=== PATIENT | male | born 1965 | race Caucasian/White ===

== ENCOUNTER 2017-04-22 11:14 | Day surgery (SDC) | payer OTHER ==
[2017-04-22] MEDS ORDERED: LR 1,000 ML IV ONE (11:41)
--- NOTE | 2017-04-22 11:51 | PDHPUP ---
History & Physical Update H&P update statement: This history and physical update is based on an assessment of the patient which was completed after admission or registration (within 24 hours), but prior to the surgery/procedure.
[2017-04-22] MEDS ORDERED: ceFAZolin 2 GM/SWFI 2 GM/20 ML SYR IVP ONE (11:52)
[2017-04-22] MEDS ORDERED: BUPIVACAINE 0.5% 30 ML SDV ONE (12:08)
[2017-04-22] MEDS ORDERED: ROPIVACAINE HCL 150 MG/30 ML INJ ONE (12:08)
[2017-04-22] MEDS ORDERED: LIDOCAINE 1% 300 MG/30 ML SDV ONE (12:08)
[2017-04-22] MEDS ORDERED: DEXAMETHASONE 4 MG/ML VIAL ONE (12:08)
[2017-04-22] MEDS ORDERED: BACITRACIN 50,000 UNITS/10 ML SYR IRR ONE (12:09)
[2017-04-22] MEDS ORDERED: CYANO/VITAMIN B12 1000 MCG/ML VIAL ONE (12:09)
[2017-04-22] MEDS ORDERED: MIDAZOLAM 2 MG/2 ML VIAL IVP ONE (12:09)
--- NOTE | 2017-04-22 12:09 | PDANEPAE ---
ANE History of Present Illness rright foot neuroma ANE Past Medical History - Cardiovascular History Hx Hypertension: No Hx Arrhythmias: No Hx Chest Pain: No Hx Coronary Artery / Peripheral Vascular Disease: No Hx CHF / Valvular Disease: No Hx Palpitations: No - Pulmonary History Hx COPD: No Hx Asthma/Reactive Airway Disease: No Hx Recent Upper Respiratory Infection: No Hx Oxygen in Use at Home: No Hx Sleep Apnea: No Sleep Apnea Screening Result - Last Documented: Negative - Neurologic History Hx Cerebrovascular Accident: No Hx Seizures: No Hx Dementia: No - Endocrine History Hx Diabetes: No - Renal History Hx Renal Disorders: No - Neurological & Psychiatric Hx Hx Neurological and Psychiatric Disorders: Yes Neurological / Psychiatric History Comment: anxiety, depression - Cancer History Hx Cancer: No - Congenital Disorder History Hx Congenital Disorders: No - GI History Hx Gastrointestinal Disorders: No - Other Health History Other Health History: none - Chronic Pain History Chronic Pain: No - Surgical History Prior Surgeries: none ANE Review of Systems Review of systems is: negative Review of Systems: - Exercise capacity Exercise capacity: >=4 METS METS (RN): 5 METS ANE Patient History - Allergies Allergies/Adverse Reactions: No Known Allergies Allergy (Unverified 02/06/15 15:04) - Home Medications Home Medications: Fluoxetine 02/06/15 [Last Taken Unknown] - NPO status NPO Status: no food or drink >8 hours NPO Since - Liquids (Date): 04/22/17 NPO Since - Liquids (Time): 08:00 NPO Since - Solids (Date): 04/20/17 - Anes Hx Anes Hx: no prior problems - Smoking Hx Smoking Status: Never smoked - Alcohol Use Alcohol Use: Rarely - Family Anes Hx Family Hx Anesthesia Complications: none ANE Labs/Vital Signs - Vital Signs Blood Pressure: 108/70 Heart Rate: 52 Respiratory Rate: 16 O2 Sat (%): 95 Height: 175.26 cm Weight: 72.575 kg ANE Physical Exam - Airway Mallampati Score: Class 2 Mouth exam: normal dental/mouth exam - Pulmonary Pulmonary: no respiratory distress - Cardiovascular Cardiovascular: regular rate and rhythym - ASA Status ASA Status: I ANE Anesthesia Plan Anesthesia Plan: MAC
[2017-04-22] MEDS ORDERED: LIDOCAINE 2% 5 ML SDV ONE (12:26)
[2017-04-22] MEDS ORDERED: PROPOFOL/EMULSION 500 MG/50 ML BOTTLE IV ONE (12:26)
[2017-04-22] MEDS ORDERED: fentaNYL 100 MCG/2 ML INJ ONE (12:26)
[2017-04-22] MEDS ORDERED: KETOROLAC 30 MG/1 ML SDV ONE (13:19)
--- NOTE | 2017-04-22 13:50 | POSTOPPROG ---
Post Op Note Date of Operation: 04/22/17 Surgeon: Kailey Solorio Mental Hygiene Consultant: NONE Anesthesiologist: DR.Andrew Jonathan MD Anesthesia: Other (Specify) (MAC/light general) Pre-op Diagnosis: neuroma 3rd IMS right foot Post-op Diagnosis: same Indication: pain Procedure: excision neuroma 3rd IMS right foot Findings: very enlarged nerve Inf/Abcess present in the surg proc area at time of surgery?: No Depth: Deep Incisional (Fascial) EBL: Minimal Complications: none Drains: Other (silastic)
[2017-04-22] MEDS ORDERED: PROMETHAZINE HCL 25 MG/ML INJ IVP PRN (13:52)
[2017-04-22] MEDS ORDERED: NALOXONE HCL 0.4 MG/ML INJ IVP PRN (13:52)
[2017-04-22] MEDS ORDERED: HYDROCODONE/APAP 5/325 TAB PO PRN (13:52)
[2017-04-22] MEDS ORDERED: fentaNYL 100 MCG/2 ML INJ IVP PRN (13:52)
[2017-04-22] MEDS ORDERED: ALBUTEROL 3 ML DEYVIAL IH PRN (13:52)
[2017-04-22] MEDS ORDERED: ONDANSETRON 4 MG/2 ML VIAL IVP PRN (13:52)
[2017-04-22] MEDS ORDERED: OXYCODONE/APAP 5/325 TAB PO PRN (13:52)
--- NOTE | 2017-04-22 13:52 | POSTANESTH ---
Post Anesthetic Evaluation Cardiovascular Status: Normal, Stable Respiratory Status: Normal, Stable Level of Consciousness/Mental Status: Can Participate in Eval Pain Control: Adequate, Prn Tx Ordered Nausea/Vomiting Control: Adequate, Prn Tx Ordered Complications Possibly Related to Anesthesia: None Noted
[2017-04-22 14:18] VITALS: TEMP 97.5
[2017-04-22 14:53] VITALS: BP 100/63; PULSE 47; RESP 14; O2SAT 99
--- NOTE | 2017-04-23 03:54 | GOP ---
[f rep st] OPERATIVE REPORT DATE OF OPERATION: 04/22/2017 SURGEON: Kailey Solorio DPM ANESTHESIA: MAC/light general. 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 PROCEDURE PERFORMED: Excision of neuroma at 3rd intermetatarsal space, right foot. FINDINGS: Soft tissue mass, quite large, consistent with that of a neuroma. INDICATIONS: Pain of right foot consistent with that of a neuroma. Temporary relief was provided with local cortisone injections. Other conservative treatment options discussed at past visits, as well as shoe education. The patient has had symptoms for years, which have been progressively getting worse. 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 At this time, Dwight has elected to proceed with surgery. DESCRIPTION OF PROCEDURE: The patient was brought into the operating room, placed on the operating table in the supine position, and intravenous sedation was administered by the anesthesiologist. A posterior tibial and peripheral nerve block was obtained utilizing a total of 15 mL of a 1:1 mix of 0.5% Marcaine plain, 1% lidocaine plain, and 0.5% ropivacaine plain. The lower extremity was prepped and draped in the usual sterile manner. After the limb had been elevated, it was exsanguinated with an Esmarch bandage, and the ankle tourniquet was inflated to 220 mmHg and the procedure was begun. Webril padding was applied under the ankle cuff. Attention was directed toward the dorsal aspect of the 3rd intermetatarsal space where a linear incision was created. The incision was carefully deepened with care of neurovascular structures and then I clamped and cauterized bleeders. With plantar pressure to web space, a large rubbery soft tissue consistent with that of a neuroma was identified. With careful dissection, the distal branches to the 3rd and 4th digit were identified and released. Soft tissue mass was released from surrounding scar tissue. The tight intermetatarsal ligament was released to allow for exposure of the proximal nerve branch. Once fully released, the soft tissue mass was distracted distally and then transected at a level proximal to the lesser metatarsal heads at the level of the intrinsic muscles. The specimen was removed from the wound in toto and sent to pathology for gross and microscopic examination. The wound was inspected and no other pathologic tissue was noted to be present. The wound was copiously irrigated with bacitracin irrigation solution. Note prior to transection of the proximal branch, a mixture of 2 mL of ropivacaine and Marcaine combined with 1 mL of B12, or cyanocobalamin, and 1 mL of Decadron were injected. The tourniquet was released and a normal hyperemic response was noted to all digits. Surgicel was used to help control bleeding. A separate stab incision was created for exiting of a silastic drain. Once bleeding controlled, subcutaneous closure was achieved with 4-0 Monocryl. The skin was then closed with 4-0 Prolene and horizontal mattress in a simple interrupted suture manner. Dressings included Xeroform, 4 x 4s, fluffs, and Nilesh reinforced with tape and an Alex bandage. The patient tolerated the procedure and anesthesia well and left the operating room with vital signs stable and vascular status intact to all digits. There were no intraoperative complications. The specimen was sent to pathology for gross and microscopic examination. There were no additional injectables. The patient was without pain in the recovery room. He was fitted with a Cryo Cuff. His will be providing transportation home. Prognosis is good. /[id number]/MODL MTDD
== END 2017-04-22 15:25 | disposition home or self-care (01) ==
LOC: FSGY 11:14
PROVIDERS: ATTEND Podiatrist
PROC: 01BG0ZZ Excision of Tibial Nerve, Open Approach (ICD-10-PCS; principal; 2017-04-22 12:30)
DX: G57.81 Other specified mononeuropathies of right lower limb (principal); F41.9 Anxiety disorder, unspecified; F32.9 Major depressive disorder, single episode, unspecified
CPT/HCPCS: J0690; J1100; J1885; J2250; J2704; J2795; J3010

== ENCOUNTER 2017-04-23 12:57 | Observation (INO) | payer OTHER ==
[2017-04-23] MEDS ORDERED: NS 1,000 ML IV ONE ×2 (13:24→15:37)
--- NOTE | 2017-04-23 13:28 | EDPHY ---
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 He had a neuroma excision of his right foot yesterday with Dr. Kailey Solorio. He took 1 dose of oxycodone last evening. He was doing well this morning and having minimal pain. Suddenly at 11 o'clock he could not speak. He was talking to his and got stuck on the word transparent and was saying "trans ball bowl". He then could not speak at all. He was writing things down for his . His states that the writing was sap bw consultant. After about 5 minutes his symptoms began to resolve and he could start to read things very slowly. He did not have any slurred speech with this but was very slow. Both patient and deny any facial droop or focal weakness or numbness. His had him walk around and move his arms and legs which he did without difficulty. No headache. No recent trauma. No infection. He does have a history of anxiety but has not required his anxiety medication recently. REVIEW OF SYSTEMS: Constitutional: denies: chills, fever, recent illness, recent injury EENTM: denies: blurred vision, double vision, nose congestion Respiratory: denies: cough, shortness of breath Cardiac: denies: chest pain, irregular heart rate, lightheadedness, palpitations Gastrointestinal/Abdominal: denies: abdominal pain, diarrhea, nausea, vomiting, blood streaked stools Genitourinary: denies: dysuria, frequency, hematuria, pain Musculoskeletal: denies: joint pain, muscle pain Skin: denies: lesions, rash, jaundice, bruising Neurological: See HPI Hematologic/Lymphatic: denies: blood clots, easy bleeding, easy bruising Immunologic/allergic: denies: HIV/AIDS, transplant EXAM: GENERAL: Well-appearing, well-nourished and in no acute distress. HEAD: Atraumatic, normocephalic. EYES: Pupils equal round and reactive to light, extraocular movements intact, sclera anicteric, conjunctiva are normal. ENT: TMs normal, nares patent, oropharynx clear without exudates. Moist mucous membranes. NECK: Normal range of motion, supple without lymphadenopathy or JVD. LUNGS: Breath sounds clear to auscultation bilaterally and equal. No wheezes rales or rhonchi. HEART: Regular rate and rhythm without murmurs, rubs or gallops. ABDOMEN: Soft, nontender, normoactive bowel sounds. No guarding, no rebound. No masses appreciated. BACK: No CVA tenderness, no spinal tenderness, step-offs or deformities EXTREMITIES: Normal range of motion, no pitting or edema. No clubbing or cyanosis. NEUROLOGICAL: NIH stroke scale 0, Cranial nerves II through XII grossly intact. Normal speech, normal gait. 5/5 strength, normal movement in all extremities, normal sensation PSYCH: Normal mood, normal affect. SKIN: Warm, dry, normal turgor, no visible rashes or lesions. Source: Patient, Family - Personal History Current Tetanus/Diphtheria Vaccine: Unsure Current Tetanus Diphtheria and Acellular Pertussis (TDAP): Unsure - Medical/Surgical History Hx Asthma: No Hx Chronic Respiratory Disease: No Hx Diabetes: No Hx Cardiac Disease: No Hx Renal Disease: No Hx Cirrhosis: No Hx Alcoholism: No Hx HIV/AIDS: No Hx Splenectomy or Spleen Trauma: No Other PMH: R foot surgery - Family History Significant Family History: No pertinent family hx - Social History Smoking Status: Never smoked Alcohol Use: Sober Drug Use: None Constitutional: Initial Vital Signs Temperature (C) 37.0 C 04/23/17 13:00 Heart Rate 67 04/23/17 13:00 Respiratory Rate 16 04/23/17 13:00 Blood Pressure 101/70 04/23/17 13:00 O2 Sat (%) 96 04/23/17 13:00 O2 Delivery Mode Room Air Allergies/Adverse Reactions: No Known Allergies Allergy (Unverified 02/06/15 15:04) Home Medications: Medication Instructions Recorded Acetaminophen [Tylenol 325mg (*)] 325 mg PO DAILY PRN 04/23/17 Gabapentin [Neurontin 300 MG (*)] 300 mg PO HS 04/23/17 Mirtazapine [Remeron] 15 mg PO HS 04/23/17 oxyCODONE/APAP 5/325 [Percocet 1 tab PO Q4-6PRN PRN 04/23/17 5/325 (*)] Medical Decision Making - Diagnostics EKG Interpretation: An EKG obtained and was read and documented in trace view. Please see trace view for full reading and report. Sinus rhythm, no acute ischemic changes Imaging: Discussed imaging studies w/ street sprinkler Radiologist ED Course/Re-evaluation: Patient's imaging and lab work and ultrasound are very reassuring. He remains completely asymptomatic. I have paged Neurology to discuss. Anticipate that will start him on aspirin and allow him to go home. I attempted to call Dr. Solorio back at the cell phone number she provided however it states that the message box is full. 3:05 p.m. I discussed the case with Dr. Richey from Neurology. He recommends admission for further testing and telemetry monitoring. I discussed the case with Dr. Abena Francois who will admit. Differential Diagnosis: Partial list of the Differential diagnosis considered include but were not limited to; TIA, CVA and although unlikely based on the history and physical exam, I also considered vascular disease, arrhythmia, DVT. - Data Points Laboratory Results: Laboratory Results 04/23/17 13:14 04/23/17 13:14 Medications Given: Gabapentin (Neurontin) 300 mg PO HS NELSON Stop: 10/20/17 20:59 Last Admin: 04/23/17 21:23 Dose: 300 mg Oxycodone/Acetaminophen (Percocet 5/325) 1 tab PO Q4 PRN PRN Reason: Pain, Breakthrough Stop: 05/03/17 15:42 Last Admin: 04/23/17 17:54 Dose: 1 tab Senna/Docusate Sodium (Senokot-S) 1 - 2 tab PO BID NELSON PRN Reason: Protocol Stop: 10/20/17 21:14 Last Admin: 04/23/17 21:23 Dose: 2 tab Discontinued Medications Sodium Chloride (Ns) 1,000 mls @ 0 mls/hr IV ONCE ONE; Wide Open PRN Reason: Protocol Stop: 04/23/17 13:25 Last Admin: 04/23/17 13:30 Dose: 1,000 mls Sodium Chloride (Ns) 1,000 mls @ 3,000 mls/hr IV ONCE ONE Stop: 04/23/17 15:56 Last Admin: 04/23/17 18:19 Dose: Not Given Departure - Departure Disposition: [facility] Acute Clinical Impression: TIA (transient ischemic attack) Qualifiers: Transient cerebral ischemia type: unspecified Qualified Code(s): G45.9 - Transient cerebral ischemic attack, unspecified Condition: Fair
--- NOTE | 2017-04-23 13:34 | CPEKG ---
Heart Rate: 69 RR Interval: 870 P-R Interval: 172 QRSD Interval: 80 QT Interval: 396 QTC Interval: 425 P Quinwood: 23 QRS Quinwood: 60 T Wave Quinwood: 30 EKG Severity - NORMAL ECG - EKG Impression: SINUS RHYTHM Electronically Signed By: Blair Monique 23-Apr-2017 13:57:32
[2017-04-23 13:35] LABS: % IMMATURE GRANULYOCYTES 0.2 % (0.0-1.1); ABSOLUTE IMMATURE GRANULOCYTES 0.01 10^3/uL (0.00-0.10); ADD DIFF? NO; ADD MORPH? NO; ADD SCAN? NO; ATYPICAL LYMPHOCYTE FLAG 0 (0-99); FRAGMENT RBC FLAG 0 (0-99); HEMATOCRIT 44.5 % (40.0-51.0); HEMOGLOBIN 15.4 g/dL (13.7-17.5); LEFT SHIFT FLG 0 (0-99); LIPEMIA HEMOLYSIS FLAG 90 (0-99); MEAN CELL HEMOGLOBIN 30.2 pg (27.9-34.1); MEAN CELL HEMOGLOBIN CONCENTR. 34.6 g/dL (32.4-36.7); MEAN CELL VOLUME 87.3 fL (81.5-99.8); MEAN PLATELET VOLUME 8.6 fL (8.7-11.7); PLATELET CLUMPS FLAG 0 (0-99); PLATELET COUNT 210 10^3/uL (150-400); RED CELL DISTRIBUTION WIDTH 12.4 % (11.5-15.2)
[2017-04-23 13:44] LABS: ANION GAP 13 mEq/L (8-16); CALCIUM 8.3 mg/dL (8.5-10.4); CARBON DIOXIDE 23 mEq/l (22-31); CHLORIDE 104 mEq/L (97-110); CREATININE 0.9 mg/dL (0.7-1.3); GLOMERULAR FILTRATION RATE > 60; GLUCOSE 92 mg/dL (70-100); POTASSIUM 4.3 mEq/L (3.5-5.2); SODIUM 140 mEq/L (134-144)
[2017-04-23 13:45] LABS: INR 1.08 (0.83-1.16); PROTIME(PATIENT) 13.9 SEC (12.0-15.0)
[2017-04-23] MEDS ORDERED: ACETAMINOPHEN 325 MG TAB PO PRN (15:37)
[2017-04-23] MEDS ORDERED: ONDANSETRON DISINTEGRATING 4 MG TAB PO PRN (15:37)
[2017-04-23] MEDS ORDERED: ONDANSETRON 4 MG/2 ML VIAL IVP PRN (15:37)
[2017-04-23] MEDS ORDERED: OXYCODONE/APAP 5/325 TAB PO PRN (15:43)
[2017-04-23] MEDS ORDERED: ASPIRIN 81 MG CHEWABLE TAB PO SCH (16:36)
--- NOTE | 2017-04-23 17:23 | GHP ---
[f rep st] HISTORY AND PHYSICAL DATE OF ADMISSION: 04/23/2017 CHIEF COMPLAINT: Inability to speak. 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 and was attemp ting to say the word transparent to his and was unable to appropriately make the word. That abundio bility to find words and make words then progressed to a complete inability to speak which lasted for approximately 5 minutes. He had to switch to writing to his to communicate what he was experie ncing. The overall episode the described as lasting approximately 20 minutes until he had resol ution and resumed ability to make words and verbally communicate. The patient denies any preceding e pisodes similar to this. Denies any associated numbness, tingling, weakness. The patient had an unc omplicated postoperative course, ate normally after surgery. Had a bowel movement after surgery, ema t to sleep without complication. Woke. Has only used 1 pain pill since then prior to the episode of dysarthria. The patient in the emergency department denies any chest pain, shortness of breath, num bness, tingling, arthralgias, myalgias. Denies any recent subjective fevers or chills, difficulty sw allowing, changes in his vision. PAST MEDICAL HISTORY: Recent neuroma removal from his right foot. SOCIAL HISTORY: Negative for tobacco. Drinks maybe a beer a month. No illicit drugs or marijuana. FAMILY HISTORY: Notes his father was on warfarin for something, but not sure what. He is 88, and qu ite healthy, accomplished athlete as well. ADVANCED DIRECTIVE: Patient is full cor, full tube. REVIEW OF SYSTEMS: A 10-point review of systems is negative with the exception of that reported in t he HPI. PHYSICAL EXAMINATION: VITAL SIGNS: Blood pressure 112/70, heart rate 60, respiratory rate 16, 96% o n room air, temperature 37.0. GENERAL: This is a very healthy-appearing male in no acute distress. HEENT: Notable for moist mucous membranes. Eye exam is negative for any icterus. CARDIAC: Patient is regular rate and rhythm. No murmurs, gallops, or rubs. PULMONARY: Patient is clear to ausculta tion bilaterally. GASTROINTESTINAL: Positive bowel sounds. ABDOMEN: Soft and nontender in all 4 q uadrants. MUSCULOSKELETAL: Negative for any lower extremity edema. His surgical foot is wrapped wi th serosanguineous drainage. NEUROLOGIC: Patient is alert and oriented x3. Cranial nerves 2-12 are grossly intact. Sensation is intact throughout. Strength is 5/5 of bilateral upper and lower extre mities. Gait was not examined. DATA: MRI of the brain, which I personally reviewed and interpreted, shows no acute infarcts or flores ges. EKG, which I personally reviewed and interpreted, shows sinus rhythm, normal axis, normal inter vals, with no acute ST-T changes. LABORATORY: White count 6.5, platelet count of 210. Sodium 140, creatinine 0.9, potassium 4.3. ASSESSMENT AND PLAN: This is a 52-year-old male presenting with transient inability to speak, dysart hria. 1. Suspected transient ischemic attack. Patient had transient neurologic symptoms which have resolve d by the time he presented to the emergency department. Initial neurologic imaging is negative. Jose Angel l admit the patient for neurologic evaluation and observation telemetry. Transthoracic echocardiogram and carotid ultrasound have been ordered. Hemoglobin A1c and lipids have been ordered for a.m. labs . The patient will be seen by Neurology. 2. Recent neuroma removal. Patient has had no complications post surgically. Will continue his as needed pain medications. 3. Prophylaxis with Lovenox. 4. Diet regular after Speech Therapy clears. DISPOSITION: I expect in less than 2 midnights as the patient's neurologic monitoring is negative, s een by Neurology and is safe for disposition. I have discussed the case with the emergency room phys nina. Patient will be triaged to [address] [place] [address] for neurologic monitoring. /[id number]/MODL
[2017-04-23] MEDS ORDERED: GABAPENTIN 300 MG CAP PO SCH (21:00)
[2017-04-23] MEDS ORDERED: NON-FORMULARY NEW DRUG (Mirtazapine [Remeron] 15 MG) PO SCH (21:00)
[2017-04-23] MEDS ORDERED: POLYETHYLENE GLYCOL 3350 17 GM PKT PO PRN (21:11)
[2017-04-23] MEDS ORDERED: MAGNESIUM HYDROXIDE 30 ML UDCUP PO PRN (21:11)
[2017-04-23] MEDS ORDERED: BISACODYL 10 MG SUPP PR PRN (21:11)
[2017-04-23] MEDS ORDERED: LACTULOSE 20 GM/30 ML UDCUP PO PRN (21:11)
[2017-04-23] MEDS: SENNOSIDES/DOCUSATE SODIUM TAB PO SCH (21:23)
[2017-04-24 04:50] LABS: % IMMATURE GRANULYOCYTES 0.2 % (0.0-1.1); ABSOLUTE IMMATURE GRANULOCYTES 0.01 10^3/uL (0.00-0.10); ADD DIFF? NO; ADD MORPH? NO; ADD SCAN? NO; ATYPICAL LYMPHOCYTE FLAG 0 (0-99); FRAGMENT RBC FLAG 0 (0-99); HEMATOCRIT 43.5 % (40.0-51.0); HEMOGLOBIN 14.8 g/dL (13.7-17.5); LEFT SHIFT FLG 0 (0-99); LIPEMIA HEMOLYSIS FLAG 90 (0-99); MEAN CELL HEMOGLOBIN 30.2 pg (27.9-34.1); MEAN CELL VOLUME 88.8 fL (81.5-99.8); MEAN PLATELET VOLUME 8.6 fL (8.7-11.7); PLATELET CLUMPS FLAG 0 (0-99); PLATELET COUNT 170 10^3/uL (150-400); RED CELL DISTRIBUTION WIDTH 12.2 % (11.5-15.2)
[2017-04-24 05:30] LABS: ANION GAP 10 mEq/L (8-16); CALCIUM 8.1 mg/dL (8.5-10.4); CARBON DIOXIDE 25 mEq/l (22-31); CHLORIDE 105 mEq/L (97-110); CHOLESTEROL 138 mg/dL (140-220); CHOLESTEROL/HDL RATIO 3.37 RATIO (1.00-4.97); CREATININE 0.9 mg/dL (0.7-1.3); GLOMERULAR FILTRATION RATE > 60; GLUCOSE 79 mg/dL (70-100); HIGH DENSITY LIPOPROTEIN 41 mg/dL (40-65); LDL/HDL RATIO 1.85 RATIO (1.00-3.64); LOW DENSITY LIPOPROTEIN 76 mg/dL (80-100); NON-HIGH DENSITY LIPOPROTEIN 97 mg/dL (90-129); POTASSIUM 4.3 mEq/L (3.5-5.2); SODIUM 140 mEq/L (134-144); TRIGLYCERIDE 108 mg/dL (40-150); VERY LOW DENSITY LIPOPROTEINS 21 mg/dL (8-25)
[2017-04-24 07:49] VITALS: TEMP 97.5
[2017-04-24] MEDS: SENNOSIDES/DOCUSATE SODIUM TAB PO SCH (08:58)
[2017-04-24] MEDS ORDERED: ASPIRIN 81 MG CHEWABLE TAB PO SCH (09:00)
[2017-04-24] MEDS ORDERED: ENOXAPARIN 40 MG/0.4 ML SYR SC SCH (09:00)
[2017-04-24 09:05] LABS: HEMOGLOBIN A1C 5.4 % (4.0-6.0)
--- NOTE | 2017-04-24 09:57 | ASMTCMCOM ---
CM Note CM Note Notes: Chart reviewed. Spoke to RN all signs lorraine TIA resolved. For CT angio and echo. Likely home with no needs. CM available should needs arise. Date Signed: 04/24/2017 09:56 AM Electronically Signed By:Tati Hunter RN
[2017-04-24] MEDS ORDERED: IOPAMIDOL (ISOVUE 370) 100 ML BTL IV ONE (10:02)
--- NOTE | 2017-04-24 11:08 | NEUROPROG ---
Assessment: HOSPITAL NEUROLOGY CONSULT REQUESTING: Betzaida Trevino MD REASON: TIA HPI: 52 year old right-handed man presented to our facility yesterday, 04/23, for suspected TIA. 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 He has no known vascular risk factors. The day prior to admission he had a neuroma removed from his right foot. He received MAC anesthesia, but he's not sure what agents were used. The day of admission, he was at home and around 1100 he had an abrupt onset difficulty producing words. His noted he was producing nonsensical sounds - he was trying to say the word transparent out loud, which was in a sentence he was reading. Then, he notes trying to read something in front of him and he couldn't make sense of the words on the page. His verbal output then stopped completely. He was able to write. He comprehension seemed preserved. This spell lasted about 5 mins, at which point he regained all language function. He denies any vision loss, diplopia, dizziness, weakness, sensory loss, gait change, KHAN, fevers. He took a single dose of oxycodone the night before, but no medications the day of the event. No history of stroke/ TIA. ROS: As per the HPI, otherwise a complete 12 point ROS was performed and is negative ALLERGIES AND MEDS: As recorded in the EMR - reviewed and reconciled PFSH: As per the intake H&P by Dr. Trevino from yesterday EXAM: VS reviewed in EMR GEN: WDWN laying in NAD, boot on right foot from surgery HEENT: NCAT, sclera anicteric, conjunctiva not injected, MMM, oropharynx clear, no scalp tenderness NECK: supple, nontender, no meningismus CV: RRR s1 s2 wo m/r/c/g. Carotid pulses 2+ wo bruit NEURO: MS: awake, alert, oriented to all spheres. Speech nondysarthric. No language disturbance. Follows commands. Attends to both sides. Recent/remote memory grossly intact. Mood euthymic. Good fund of knowledge. CN: pupils 5mm round and reactive. Fundi with sharp discs. VFF. Primary gaze centered. Full ocular motility. Facial sensation preserved. Face symmetric. Hearing grossly intact to finger rub. Palatoglossal movements intact. Shoulder shrug and head turn strong. MOTOR: normal bulk/tone. No adventitial movements. Full power throughout. SENSORY: intact to all modalities throughout. No extinction. COORD: no ataxia FN/HS. Gunnar preserved. REFLEX: plantars down. No clonus. DTRS 2/4. GAIT: deferred to PT safety eval DATA REVIEW: Labs reviewed in EMR LDL 75 A1c 5.4 TTE pending PERSONALLY INTERPRETED RESULTS AND DATA: MRI brain wo - single area of T2 FLAIR hyperintensity in the left parietal white matter - nonspecific. Nothing acute. No other abnormalities. Carotid doppler - normal IMPRESSION AND RECOMMENDATIONS: // POSSIBLE TIA Patient with an episode of aphasia and alexia lasting 5 mins. Certainly could have been a TIA given symptomatology. Other considerations include lingering effect of anesthesia or anxiety phenomenon. - CTA head/neck - need to eval full course of left anterior circulation given language dysfunction, as well as posterior circulation given alexia without agraphia (though, no vision loss) - cont ASA 81mg daily - start low dose statin for pleiotropic effects - goal normotension - A1c at goal < 6.5 - TTE pending - PT/OT/CYBER SECURITY MANAGER consults - stroke education - will need outpatient evaluation with cardiology for paroxysmal arrhythmia evaluation (perhaps perioperative induced) - likely needs just 30 day Holter - followup with PCP after discharge Objective: Vital Signs Temp Pulse Resp BP Pulse Ox 36.4 C 56 L 16 107/63 94 04/24/17 07:48 04/24/17 07:48 04/24/17 07:48 04/24/17 07:48 04/24/17 07:48 Laboratory Results 04/24/17 04:39 04/24/17 04:39 04/23/17 04/24/17 04/25/17 05:59 05:59 05:59 Intake Total 550 Balance 550 PT 13.9 SEC (12.0-15.0) 04/23/17 13:14 INR 1.08 (0.83-1.16) 04/23/17 13:14 Allergies/Adverse Reactions: No Known Allergies Allergy (Unverified 02/06/15 15:04)
--- NOTE | 2017-04-24 12:51 | HOSPPROG ---
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 He recently had a neuroma moved from his right foot. Later that day he was having the inability to find words and had some difficulty speaking. This lasted approximately 5 minutes he was admitted for further evaluation. * suspected transient ischemic attack-MRI of the brain showed no acute infarct or changes -EKG shows sinus rhythm -echo is pending -A1c is 5.4 and LDL is 75 -will need outpatient cardiology further evaluation and recommendation is a 30 day Holter monitor -CT of the head and neck nothing acute -carotid Doppler does not indicate any stenosis -could of been r/t pain medication -reviewed plaster mixer, he is in sinus rhythm *recent neuroma removal *Hx of anxiety *Plan: if echo stable, will dc home. spoke with cardiology/ holter monitor will be sent in the next 72 hours or so. He will need f/u with them. Subjective: Dwight feels fine/ has no complaints. Objective: Vital Signs Temp Pulse Resp BP Pulse Ox 36.4 C 56 L 16 107/63 94 04/24/17 07:48 04/24/17 07:48 04/24/17 07:48 04/24/17 07:48 04/24/17 07:48 Laboratory Results 04/24/17 04:39 04/24/17 04:39 04/23/17 04/24/17 04/25/17 05:59 05:59 05:59 Intake Total 550 Balance 550 PT 13.9 SEC (12.0-15.0) 04/23/17 13:14 INR 1.08 (0.83-1.16) 04/23/17 13:14 - Physical Exam Constitutional: no apparent distress, appears nourished, not in pain Eyes: PERRL Ears, Nose, Mouth, Throat: hearing normal Cardiovascular: regular rate and rhythym Respiratory: no respiratory distress Gastrointestinal: normoactive bowel sounds Skin: warm Musculoskeletal: full muscle strength Neurologic: AAOx3, CN II-XII Intact, No facial droop Psychiatric: interacting appropriately, not anxious ICD10 Worksheet Patient Problems: Problems Problem Status Onset TIA (transient ischemic attack) Acute
--- NOTE | 2017-04-24 14:41 | ECHO ---
[email or web address] [address] [address] Main: [phone] Fax: Transthoracic Echocardiogram Name: LAMBERTO ORELLANA MR#: [id number] Study Date: 04/24/2017 Study Time: 01:38 PM Date of : 1965 Age: 52 year(s) Height: 182.9 cm (72 in.) Weight: 73.48 kg (162 lb.) BSA: 1.95 m2 Gender: Male Examination: Echo with Agitated Saline Indication: TIA source of emboli Image Quality: Adequate Contrast: I.V. dose of agitated saline Requested by: Betzaida Trevino BP: 107 mmHg/63 mmHg Heart Rate: Rhythm: Normal sinus rhythm Indication: TIA source of emboli Procedure Staff Blade Bender Furnace Tender: Maribeth Cutler Reading Physician: Michi Good Requesting Provider: Conclusions: Normal global systolic LV function. EF is 66 %. An agitated saline study was performed and was negative for intracardiac shunting. Trivial mitral valve regurgitation. Diffuse aortic cusp thickening is noted. Trivial aortic valve regurgitation. No gross evidence of vegetations. Trivial tricuspid valve regurgitation. Measurements: Chambers Valvular Assessment AV/MV Valvular Assessment TV/PV Normal Normal Normal Name Value Range Name Value Range Name Value Range Ao Antonette (MM): 3.4 cm (2.2 cm-3.7 AV Vmax: 1.11 m/s (1 m/s-1.7 PV Vmax: 0.87 m/s (0.6 m/s-0.9 cm) m/s) m/s) IVSd (2D): 0.9 cm (0.6 cm-1.1 AV maxP mmHg ( - ) PV PGmax: 3 mmHg ( - ) cm) LVOT Vmax: 0.87 m/s (0.7 m/s-1.1 LVDd (2D): 4.1 cm (4.2 cm-5.9 m/s) cm) MV E Vmax: 0.61 m/s ( - ) LVDs (2D): 2.5 cm (2.1 cm-4 MV A Vmax: 0.61 m/s ( - ) cm) MV E/A: 1.00 ( - ) LVPWd (2D): 0.9 cm (0.6 cm-1 cm) LVEF (BP): 66 % (>=55 %) RVDd(2D): 3.0 cm (1.9 cm-3.8 cmmm) Continued Measurements: Chambers Valvular Assessment AV/MV Patient: LAMBERTO ORELLANA Study Date: 04/24/2017 Page 1 of 2 01:38 PM Name Value Name Value LADs Lon.0 cm MV DecTime: 289 m/s LA Area: 12.9 cm2 MV E' Septal: 0.08 m/s MV E/E' Septal: 7.20 MV E/E' Lateral: 5.20 Findings: Left Ventricle: Normal size left ventricle. No LV hypertrophy. Normal global systolic LV function. EF is 66 %. No regional wall motion abnormality. Normal diastolic LV function. Right Ventricle: Normal size right ventricle. Left Atrium: The left atrium is normal in size. An agitated saline study was performed and was negative for intracardiac shunting. Right Atrium: The right atrium is normal in size. Mitral Valve: The mitral valve is normal in appearance and function. Trivial mitral valve regurgitation. Aortic Valve: Diffuse aortic cusp thickening is noted. Trivial aortic valve regurgitation. No gross evidence of vegetations. Tricuspid Valve: The tricuspid valve is normal in appearance and function. Trivial tricuspid valve regurgitation. Pulmonary artery pressure is not obtained due to inadequate TR jet. Pulmonic Valve: The pulmonic valve is normal in appearance and function. Aorta: The aorta is normal. Normal size aortic root measuring 3.4 cm. Pericardium: No pericardial effusion. (No Signature Object) Patient: LAMBERTO ORELLANA Study Date: 04/24/2017 Page 2 of 2 01:38 PM [id number]
[2017-04-24 15:29] VITALS: BP 101/55; PULSE 52; RESP 16; O2SAT 95
--- NOTE | 2017-04-24 15:54 | ASDISCHSUM ---
Discharge Information Plan Status:Home with No Needs Medically Cleared to Leave: Discharge Date:04/24/2017 03:50 PM CM D/C Disposition:Home, Routine, Self-Care ADT D/C Disposition:Home, Routine, Self-Care Projected Discharge Date:04/24/2017 03:50 PM Transportation at D/C: Discharge Delay Reason: Follow-Up Date:04/24/2017 03:50 PM Discharge Slot: Final Diagnosis: Placement Information Patient Contact Information Contact Name:ZECHARIAH Relationship: Address:[address] [place] [address] [place] City:[place] Alternate Phone: [facility]/Zip Code:[place] [address] Email: Financial Information Financial Class:HMO and PPO Plans Primary Plan Desc:TONYA PPO [employer] Primary Plan Number:[id number] Secondary Plan Desc: Secondary Plan Number: Assessment Information LACE LACE Acuity / Level of Care Answers: Was the patient admitted to hospital via the emergency department? Yes: Emergency dept visits in Answers: 1 last 6 months Score: 4 Date Signed: 04/23/2017 05:08 PM Electronically Signed By:Annia Bruce RN [facility] CM Progress Note CM Note CM Note Notes: Chart reviewed. Spoke to RN all signs lorraine TIA resolved. For CT angio and echo. Likely home with no needs. CM available should needs arise. Date Signed: 04/24/2017 09:56 AM Electronically Signed By:Tati Hunter RN Intervention Information
--- NOTE | 2017-04-25 08:46 | GDS ---
[f rep st] DISCHARGE SUMMARY DISCHARGE DIAGNOSIS: 1. Suspected transient ischemic attack. 2. Recent neuroma removal. 3. History of anxiety. CONSULTATION: Dr. Turcios. 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 He recently had a neuroma removed from his right foot and to that day he was having difficulty wi th finding words and some difficulty speaking. This lasted approximately 5 minutes and this was reso lved. HOSPITAL COURSE: 1. Suspected transient ischemic attack. MRI of the brain showed no acute infarct or changes. EKG s howed sinus rhythm. Echocardiogram noted normal LV function. A saline study was performed which was negative for intracardiac shunting. He was monitored on the personnel monitor. He had been in sinu s rhythm throughout his stay. Carotid Dopplers did not indicate any stenosis. He will get a Holter monitor in the outpatient setting. Reviewed with him and his significant other if he has any further symptoms of a stroke, return to the ER. 2. Recent neuroma removal, stable. 3. History of anxiety, stable. DISCHARGE CONDITION: Stable. His blood pressure is 107/63, O2 saturations on room air 94%, respirat ory rate is 16, pulse is 56, temperature is 36.4 Celsius. MEDICATIONS AT DISCHARGE: Please see the EMR. DISCHARGE INSTRUCTIONS: 1. To follow up with Cardiology. I have given him the name of the person to follow up after he does the Holter monitor. 2. If he develops any stroke-like symptoms, return to the ER. /[id number]/MODL
== END 2017-04-24 15:50 | disposition home or self-care (01) ==
LOC: F3N 16:57
PROVIDERS: ADMIT Internal Medicine; ATTEND Internal Medicine
DX: G45.9 Transient cerebral ischemic attack, unspecified (principal); F41.9 Anxiety disorder, unspecified; Z98.890 Other specified postprocedural states
CPT/HCPCS: 70496; 70498; 70551; 92523; 93005; 93306; 93880; 93970; 97161; G0378; J1650; Q9967